=== PATIENT | female | born 1950 | race Caucasian/White ===

== ENCOUNTER 2018-08-23 09:37 | Emergency (ER) | payer OTHER ==
[~2018-08-23] VITALS: Ht 160 cm; Wt 81.6 kg
[~2018-08-23 09:37] MED LIST: ABILIFY5 MG PO; ANTIVERT25 M1 PO; ASPIR 8181 MG; CATAFLAM50 MG PO; ECOTRIN81 MG PO; GLIPIZIDE10 MG/BOTT PO; LEVOXYL200 MCG PO; LEVSIN/SL0.125 MG PO; MACRODANTIN100 MG PO; NORVASC10 MG PO; NORVASC2.5 M1; ONFI5 MG; PROTONIX40 MG PO; SYNTHROID50 MCG PO; ULTRACET PO; WELLBUTRIN
[2018-08-23] MEDS ORDERED: AVAPRO150 MG (10:01)
[2018-08-23] MEDS ORDERED: HUMULIN R500 UNIT/2 (10:01)
[2018-08-23] MEDS ORDERED: ZOLOFT100 MG (10:05)
[2018-08-23] MEDS ORDERED: CLONAZEPAM1 MG (10:05)
[2018-08-23] MEDS ORDERED: CRESTOR10 MG (10:05)
== END 2018-08-23 14:30 | disposition home or self-care (01) ==
LOC: ER 09:37
DX: N39.0 Urinary tract infection, site not specified (principal); R10.32 Left lower quadrant pain; R10.31 Right lower quadrant pain

== ENCOUNTER 2019-07-14 14:24 | Outpatient (CLI) | payer OTHER ==
[~2019-07-14 14:24] MED LIST changes: +AVAPRO150 MG; +CLONAZEPAM1 MG; +CRESTOR10 MG; +HUMULIN R500 UNIT/2; +ZOLOFT100 MG
== END 2019-07-14 14:35 | disposition home or self-care (01) ==
LOC: RAD 14:24
DX: I10 Essential (primary) hypertension (principal); E03.8 Other specified hypothyroidism; E66.8 Other obesity; B96.81 Helicobacter pylori [H. pylori] as the cause of diseases classified elsewhere; F41.8 Other specified anxiety disorders; E78.00 Pure hypercholesterolemia, unspecified; R13.10 Dysphagia, unspecified; F32.89 Other specified depressive episodes; E10.9 Type 1 diabetes mellitus without complications; E10.319 Type 1 diabetes mellitus with unspecified diabetic retinopathy without macular edema; J98.11 Atelectasis; J47.9 Bronchiectasis, uncomplicated

== ENCOUNTER 2019-10-20 09:37 | Emergency (ER) | payer OTHER ==
[~2019-10-20] VITALS: Ht 165.1 cm; Wt 86.2 kg
[2019-10-20] MEDS ORDERED: NORVASC10 MG PO (09:55)
[2019-10-20] MEDS ORDERED: ZESTRIL5 MG (09:56)
[2019-10-20] MEDS ORDERED: SYNTHROID175 MCG (09:56)
[2019-10-20] MEDS ORDERED: ZOLOFT100 MG (09:56)
[2019-10-20] MEDS ORDERED: SEROQUEL50 MG (09:57)
[2019-10-20] MEDS ORDERED: TRAZODONE HCL100 MG (09:57)
[2019-10-20] MEDS ORDERED: NEURONTIN300 MG (09:57)
[2019-10-20] MEDS ORDERED: HUMULIN 70100 UNIT/2 (09:58)
[2019-10-20] MEDS ORDERED: ZOCOR40 MG (09:58)
== END 2019-10-20 16:06 | disposition home or self-care (01) ==
LOC: ER 09:37
DX: K57.30 Diverticulosis of large intestine without perforation or abscess without bleeding (principal)

== ENCOUNTER 2020-01-17 10:44 | Outpatient (CLI) | payer OTHER ==
[~2020-01-17 10:44] MED LIST changes: +HUMULIN 70100 UNIT/2; +NEURONTIN300 MG; +SEROQUEL50 MG; +SYNTHROID175 MCG; +TRAZODONE HCL100 MG; +ZESTRIL5 MG; +ZOCOR40 MG
== END 2020-01-17 10:46 | disposition home or self-care (01) ==
LOC: NUCLEAR 10:44
DX: R06.09 Other forms of dyspnea (principal); B96.81 Helicobacter pylori [H. pylori] as the cause of diseases classified elsewhere; K21.9 Gastro-esophageal reflux disease without esophagitis; E66.8 Other obesity; R94.31 Abnormal electrocardiogram [ECG] [EKG]

== ENCOUNTER 2020-01-17 12:28 | Outpatient (CLI) | payer OTHER | END 2020-01-17 12:30 | disposition home or self-care (01) | LOC: RAD 12:28 | DX: R06.09 Other forms of dyspnea (principal); B96.81 Helicobacter pylori [H. pylori] as the cause of diseases classified elsewhere; K21.9 Gastro-esophageal reflux disease without esophagitis; E66.8 Other obesity ==

== ENCOUNTER 2020-07-23 08:40 | Outpatient (CLI) | payer OTHER | END 2020-07-23 08:46 | disposition HB | LOC: MAMO-SONO 08:40 | DX: Z12.31 Encounter for screening mammogram for malignant neoplasm of breast (principal); N64.59 Other signs and symptoms in breast ==

== ENCOUNTER → 2020-12-17 | Emergency (ER) | payer OTHER | END | disposition left against medical advice (07) | LOC: ER 14:11 | DX: Z53.20 Procedure and treatment not carried out because of patient's decision for unspecified reasons (principal) ==

== ENCOUNTER 2022-08-06 10:29 | Outpatient (CLI) | payer OTHER | END 2022-08-06 10:57 | disposition home or self-care (01) | LOC: MAMO-SONO 10:29 | PROVIDERS: ATTEND General Practice | DX: Z12.31 Encounter for screening mammogram for malignant neoplasm of breast (principal); N63.0 Unspecified lump in unspecified breast; R94.6 Abnormal results of thyroid function studies ==

== ENCOUNTER 2022-11-25 07:12 | Outpatient (CLI) | payer OTHER | END 2022-11-25 07:31 | disposition home or self-care (01) | LOC: RX STUDY 07:12 | PROVIDERS: ATTEND General Practice | DX: R13.12 Dysphagia, oropharyngeal phase (principal) ==

== ENCOUNTER 2024-02-29 12:53 | Outpatient (CLI) | payer OTHER | END 2024-02-29 13:09 | disposition home or self-care (01) | LOC: MAMO-SONO 12:53 | PROVIDERS: ATTEND Legal Medicine | DX: N64.4 Mastodynia (principal); N60.19 Diffuse cystic mastopathy of unspecified breast; Z12.31 Encounter for screening mammogram for malignant neoplasm of breast ==

== ENCOUNTER → 2024-03-25 | Outpatient (CLI) | payer OTHER | END | disposition home or self-care (01) | LOC: SONOGRAMA 03-24 10:34 | PROVIDERS: ATTEND Legal Medicine | DX: R94.6 Abnormal results of thyroid function studies (principal) ==

== ENCOUNTER 2024-04-29 08:09 | Outpatient (CLI) | payer OTHER | END 2024-04-29 08:12 | disposition home or self-care (01) | LOC: TOM 08:09 | PROVIDERS: ATTEND Internal Medicine Gastroenterology | DX: K56.600 Partial intestinal obstruction, unspecified as to cause (principal); K57.30 Diverticulosis of large intestine without perforation or abscess without bleeding; Z86.0100 Personal history of colon polyps, unspecified ==

== ENCOUNTER 2024-07-29 07:31 | Outpatient (CLI) | payer OTHER | END 2024-07-29 07:38 | disposition home or self-care (01) | LOC: MRI 07:31 | PROVIDERS: ATTEND General Practice | DX: D18.1 Lymphangioma, any site (principal); G43.C0 Periodic headache syndromes in child or adult, not intractable | CPT/HCPCS: 70551 ==

== ENCOUNTER 2024-09-14 08:56 | Outpatient (CLI) | payer OTHER | END 2024-09-14 08:57 | disposition home or self-care (01) | LOC: NUCLEAR 08:56 | PROVIDERS: ATTEND General Practice | DX: I80.03 Phlebitis and thrombophlebitis of superficial vessels of lower extremities, bilateral (principal) ==

== ENCOUNTER 2024-10-17 13:40 | Emergency (ER) | payer OTHER ==
[~2024-10-17] VITALS: Ht 170.2 cm; Wt 76.7 kg
[2024-10-17] MEDS ORDERED: ROSUVASTATIN CA40 MG PO (14:36)
[2024-10-17] MEDS ORDERED: JARDIANCE10 MG PO (14:37)
[2024-10-17] MEDS ORDERED: METFORMIN HCL500 M4 PO (14:37)
[2024-10-17] MEDS ORDERED: PANTOPRAZOLE SODIUM 40 MG in 0.9 % SODIUM CHLORIDE 8 ML IV NR (16:30)
[2024-10-17] MEDS ORDERED: SODIUM CHLORIDE 0.45 % 500 ML IV ONE (16:30)
[2024-10-17] MEDS ORDERED: PANTOPRAZOLE SODIUM 40 MG/VIAL VIAL IV ONE (17:15)
[2024-10-17] MEDS ORDERED: BARIUM SULFATE 450 ML ORAL.SUSP PO ONE (18:03)
[2024-10-17 18:06] LABS: PH,URINE 5.5 (5.0-8.0); URINE APPEARANCE Clear; URINE BILIRRUBIN Negative (NEGATIVE); URINE BLOOD Negative; URINE COLOR Yellow; URINE KETONE Negative (NEGATIVE); URINE LEUKOCYTE Negative; URINE NITRATE Negative; URINE PROTEIN Negative (NEGATIVE); URINE UROBILINOGEN 0.2 E.U./dl
[2024-10-17 18:09] LABS: URINE BACTERIA 68.5 uL (0.0-1933); URINE EPITHELIAL CELLS 11.3 uL (0.0-38.8); URINE WBC 16.9 uL (0.0-23.2)
[2024-10-17 18:21] LABS: URINE GLUCOSE >=1000 MG/DL (NEGATIVE)
[2024-10-17 18:47] LABS: BASO % 0.7 % (0.1-1.2); EOS # 0.12 (0.04-0.54); EOS % 1.4 % (0.7-7.0); HEMATOCRIT 41.4 % (34.1-44.9); HEMOGLOBIN 13.9 g/dL (11.2-15.7); LYMPH # 3.07 (1.18-3.74); LYMPH % 35.5 % (19.3-53.1); MEAN CORPUSCULAR HEMOGLOBIN 30.5 pg (25.6-32.2); MONO % 6.9 % (4.7-12.5); NEUT # 4.77 (1.56-6.13); NEUT % 55.3 % (34.0-71.1); PLATELET COUNT 234 K/uL (163-369); RED BLOOD COUNT 4.55 M/uL (3.93-5.22); RED CELL DISTRIBUTION WIDTH 12.3 % (11.6-14.4)
[2024-10-17 19:24] LABS: ALBUMIN 4.2 gm/dL (3.4-5.0); BILIRUBIN TOTAL 0.52 mg/dL (0.3-1.2); CALCIUM 9.7 mg/dL (8.5-10.1); CREATININE SERUM 0.69 mg/dL (0.55-1.02); GFR 83.17; POTASSIUM 4.32 mEq/L (3.5-5.1); TOTAL PROTEIN 8.2 gm/dL (6.4-8.2)
== END 2024-10-17 23:39 | disposition home or self-care (01) ==
LOC: ER 13:40
PROVIDERS: General Practice
DX: R10.84 Generalized abdominal pain (principal); K59.00 Constipation, unspecified; K57.32 Diverticulitis of large intestine without perforation or abscess without bleeding; I10 Essential (primary) hypertension; E11.9 Type 2 diabetes mellitus without complications; Z79.4 Long term (current) use of insulin
CPT/HCPCS: 36415; 74177; 96365; 99284; J3490; Q9965

== ENCOUNTER 2024-11-16 12:06 | Outpatient (CLI) | payer OTHER ==
[~2024-11-16 12:06] MED LIST changes: +JARDIANCE10 MG PO; +METFORMIN HCL500 M4 PO; +ROSUVASTATIN CA40 MG PO
== END 2024-11-16 12:16 | disposition home or self-care (01) ==
LOC: MRI 12:06
DX: M54.17 Radiculopathy, lumbosacral region (principal); M48.062 Spinal stenosis, lumbar region with neurogenic claudication
CPT/HCPCS: 72148